=== PATIENT | male | born 1940 | race Caucasian/White ===

== ENCOUNTER 2024-01-11 20:36 | Inpatient (IN) | payer OTHER ==
[2024-01-11 21:21] LABS: #Basophils 0.04 10x3/uL (0.0-0.2); #Eosinphils 0.25 10x3/uL (0.0-0.5); #Monocytes 1.08 10x3/uL (0.0-1.1); #Neutrophils 7.47 10x3/uL (1.5-8.4); %Basophils 0.4 % (0.0-2.0); %Eosinophils 2.5 % (0.0-6.0); %Lymphocytes 9.9 % (18.0-47.0); %Monocytes 10.9 % (0.0-10.0); %Neutrophils 75.5 % (40.0-75.0); Hematocrit 34.3 % (38.8-50.0); Hemoglobin 11.3 g/dL (13.5-17.5); Mean Corpuscular HGB CONC 32.9 g/dL (32.0-36.0); Mean Corpuscular Hemoglobin 27.7 pg (27.0-33.0); Mean Corpuscular Volume 84.1 fL (81.2-95.1); Mean Platelet Volume 11.9 fL (7.4-10.4); Platelet Count 290 10x3/uL (150-450); RBC Distribution Width 15.8 % (11.5-14.5); Red Blood Cell (RBC) Count 4.08 10x6/uL (4.32-5.72); White Blood Cell (WBC) Count 9.9 10x3/uL (3.5-10.5)
[2024-01-11 21:34] LABS: ALT (SGPT) 18 U/L (8-55); AST (SGOT) 21 U/L (5-34); Albumin 3.2 g/dL (3.4-4.8); Alkaline Phosphatase 71 U/L (40-110); Anion Gap 12 mmol/L (10-20); BUN (Urea Nitrogen) 39 mg/dL (8.4-25.7); Bilirubin, Total 0.4 mg/dL (0.2-1.2); Calc. Creatinine Clearance 0 mL/min (70-130); Carbon Dioxide 24 mmol/L (23-31); Chloride 103 mmol/L (98-107); Estimated GFR 44; Globulin 3.3 g/dL (2.4-3.5); Glucose 131 mg/dL (83-110); Potassium 4.4 mmol/L (3.5-5.1); Protein, Total 6.5 g/dL (5.8-8.1); Sodium 135 mmol/L (136-145)
[2024-01-11 21:40] LABS: Troponin I 0.045 ng/mL (< 0.028)
[2024-01-11 23:49] LABS: Troponin I 0.091 ng/mL (< 0.028)
[2024-01-12] MEDS ORDERED: Guaifenesin DM 100-10/5 ML UDCUP PO PRN (00:07)
[2024-01-12] MEDS ORDERED: traMADol HCl 50 MG TAB PO PRN (00:07)
[2024-01-12] MEDS ORDERED: Calcium Carbonate 500 MG ChewTAB PO PRN (00:07)
[2024-01-12] MEDS ORDERED: Ondansetron PF 4 MG/2 ML Vial IVP PRN (00:07)
[2024-01-12] MEDS ORDERED: Acetaminophen 325 MG TAB PO PRN (00:07)
[2024-01-12] MEDS ORDERED: Senokot S 8.6-50 MG TAB PO PRN (00:07)
[2024-01-12] MEDS ORDERED: Furosemide 40 MG (4 mL) VIAL ONE (00:08)
[2024-01-12 02:26] VITALS: BMI 24.3
[2024-01-12] MEDS: Nitroglycerin 2% Ointment 1 INCH/1 GM Packet TOP SCH (02:50)
[2024-01-12 04:15] LABS: Anion Gap 13 mmol/L (10-20); BUN (Urea Nitrogen) 35 mg/dL (8.4-25.7); Calc. Creatinine Clearance 49 mL/min (70-130); Calcium 9.8 mg/dL (7.8-10.44); Carbon Dioxide 25 mmol/L (23-31); Chloride 103 mmol/L (98-107); Estimated GFR 51; Glucose 106 mg/dL (83-110); Magnesium 1.8 mg/dL (1.6-2.6); Potassium 4.4 mmol/L (3.5-5.1); Sodium 137 mmol/L (136-145)
[2024-01-12 04:17] LABS: Troponin I 0.129 ng/mL (< 0.028)
[2024-01-12 06:46] LABS: Influenza A by NAA Not Detected (NotDetected); Influenza B by NAA Not Detected (NotDetected); RSV by NAA Not Detected (NotDetected); SARS-CoV-2 NAA Rapid Test DETECTED (NotDetected)
[2024-01-12] MEDS ORDERED: Furosemide 20 MG (2 mL) VIAL SLOW IVP SCH (08:00)
[2024-01-12] MEDS: Enoxaparin 40 MG (0.4 mL) SYRINGE SC SCH (08:30)
[2024-01-12] MEDS: Allopurinol 100 MG TAB PO SCH (08:30)
[2024-01-12] MEDS: Aspirin 81 mg Enteric Coated Tablet PO SCH (08:30)
[2024-01-12] MEDS: Furosemide 40 MG (4 mL) VIAL SLOW IVP SCH (08:31)
[2024-01-12] MEDS: Carvedilol 6.25 MG TAB PO SCH (08:31)
[2024-01-12] MEDS: Magnesium Oxide 400 MG TAB PO SCH (08:31)
[2024-01-12 11:02] LABS: Cardiac Risk 2.4 (Less than 4.5)
[2024-01-12] MEDS: Magnesium 2 GM/50 ML(in water) 2 GM in Premix 1 BAG IVPB SCH (11:29)
[2024-01-12] MEDS: Simvastatin 10 MG TAB PO SCH (22:21)
[2024-01-12] MEDS: Terazosin HCl 1 MG CAP PO SCH (22:21)
[2024-01-13 09:34] LABS: #Basophils 0.04 10x3/uL (0.0-0.2); #Eosinphils 0.27 10x3/uL (0.0-0.5); #Monocytes 1.35 10x3/uL (0.0-1.1); #Neutrophils 6.21 10x3/uL (1.5-8.4); %Basophils 0.4 % (0.0-2.0); %Lymphocytes 12.7 % (18.0-47.0); %Monocytes 14.9 % (0.0-10.0); %Neutrophils 68.3 % (40.0-75.0); Hematocrit 36.4 % (38.8-50.0); Hemoglobin 12.1 g/dL (13.5-17.5); Mean Corpuscular HGB CONC 33.2 g/dL (32.0-36.0); Mean Corpuscular Hemoglobin 27.3 pg (27.0-33.0); Mean Corpuscular Volume 82.2 fL (81.2-95.1); Mean Platelet Volume 11.8 fL (7.4-10.4); Platelet Count 335 10x3/uL (150-450); RBC Distribution Width 15.9 % (11.5-14.5); Red Blood Cell (RBC) Count 4.43 10x6/uL (4.32-5.72); White Blood Cell (WBC) Count 9.1 10x3/uL (3.5-10.5)
[2024-01-13 10:02] LABS: Anion Gap 11 mmol/L (10-20); BUN (Urea Nitrogen) 34 mg/dL (8.4-25.7); Calc. Creatinine Clearance 50 mL/min (70-130); Calcium 9.5 mg/dL (7.8-10.44); Carbon Dioxide 27 mmol/L (23-31); Chloride 101 mmol/L (98-107); Estimated GFR 52; Glucose 104 mg/dL (83-110); Potassium 4.3 mmol/L (3.5-5.1); Sodium 135 mmol/L (136-145)
[2024-01-13 13:58] LABS: Hemoglobin A1c 5.6 % (4.0-6.0)
[2024-01-14 03:40] LABS: #Basophils 0.04 10x3/uL (0.0-0.2); #Eosinphils 0.29 10x3/uL (0.0-0.5); #Monocytes 1.68 10x3/uL (0.0-1.1); #Neutrophils 6.67 10x3/uL (1.5-8.4); %Basophils 0.4 % (0.0-2.0); %Eosinophils 2.9 % (0.0-6.0); %Lymphocytes 13.7 % (18.0-47.0); %Monocytes 16.6 % (0.0-10.0); %Neutrophils 65.9 % (40.0-75.0); Hematocrit 37.1 % (38.8-50.0); Hemoglobin 12.1 g/dL (13.5-17.5); Mean Corpuscular HGB CONC 32.6 g/dL (32.0-36.0); Mean Corpuscular Hemoglobin 27.1 pg (27.0-33.0); Mean Platelet Volume 11.7 fL (7.4-10.4); Platelet Count 358 10x3/uL (150-450); RBC Distribution Width 15.7 % (11.5-14.5); Red Blood Cell (RBC) Count 4.47 10x6/uL (4.32-5.72); White Blood Cell (WBC) Count 10.1 10x3/uL (3.5-10.5)
[2024-01-14 03:51] LABS: Anion Gap 12 mmol/L (10-20); BUN (Urea Nitrogen) 39 mg/dL (8.4-25.7); Calc. Creatinine Clearance 48 mL/min (70-130); Calcium 9.5 mg/dL (7.8-10.44); Carbon Dioxide 27 mmol/L (23-31); Chloride 100 mmol/L (98-107); Estimated GFR 49; Glucose 93 mg/dL (83-110); Potassium 4.5 mmol/L (3.5-5.1); Sodium 134 mmol/L (136-145)
[2024-01-14] MEDS: Sodium Chloride 0.9% 1,000 ML IV SCH (09:20)
[2024-01-14] MEDS ORDERED: Heparin 10,000 UNITS/ 10 ML VIAL ONE (09:29)
[2024-01-14] MEDS ORDERED: Lidocaine 1% (PF) 30 ML VIAL ONE (09:29)
[2024-01-14] MEDS ORDERED: Nitroglycerin 50 MG/250 ML BOT 250 ML ONE (09:29)
[2024-01-14] MEDS ORDERED: Adenosine 6 mg (2 mL) VIAL ONE (09:29)
[2024-01-14] MEDS ORDERED: Midazolam HCl 2 mg/2 ml Vial ONE (10:50)
[2024-01-14] MEDS ORDERED: fentaNYL 50 mcg/mL 1 mL Vial ONE (10:50)
[2024-01-14] MEDS ORDERED: Iopamidol 300 61% 100 ML VIAL FS ONE (11:28)
[2024-01-14] MEDS ORDERED: Clopidogrel Bisulfate 300 MG TAB ONE (11:49)
[2024-01-15 03:54] LABS: #Basophils 0.04 10x3/uL (0.0-0.2); #Eosinphils 0.15 10x3/uL (0.0-0.5); #Monocytes 2.11 10x3/uL (0.0-1.1); #Neutrophils 9.92 10x3/uL (1.5-8.4); %Basophils 0.3 % (0.0-2.0); %Eosinophils 1.1 % (0.0-6.0); %Lymphocytes 9.6 % (18.0-47.0); %Monocytes 15.5 % (0.0-10.0); %Neutrophils 73.1 % (40.0-75.0); Hematocrit 37.6 % (38.8-50.0); Hemoglobin 12.2 g/dL (13.5-17.5); Mean Corpuscular HGB CONC 32.4 g/dL (32.0-36.0); Mean Corpuscular Hemoglobin 27.1 pg (27.0-33.0); Mean Corpuscular Volume 83.6 fL (81.2-95.1); Mean Platelet Volume 11.8 fL (7.4-10.4); Platelet Count 428 10x3/uL (150-450); RBC Distribution Width 15.7 % (11.5-14.5); White Blood Cell (WBC) Count 13.6 10x3/uL (3.5-10.5)
[2024-01-15 03:55] LABS: ALT (SGPT) 22 U/L (8-55); AST (SGOT) 24 U/L (5-34); Alkaline Phosphatase 56 U/L (40-110); Anion Gap 12 mmol/L (10-20); BUN (Urea Nitrogen) 40 mg/dL (8.4-25.7); Bilirubin, Total 0.8 mg/dL (0.2-1.2); Calc. Creatinine Clearance 51 mL/min (70-130); Calcium 9.5 mg/dL (7.8-10.44); Carbon Dioxide 25 mmol/L (23-31); Chloride 100 mmol/L (98-107); Estimated GFR 52; Globulin 3.9 g/dL (2.4-3.5); Glucose 108 mg/dL (83-110); Potassium 4.4 mmol/L (3.5-5.1); Protein, Total 6.9 g/dL (5.8-8.1); Sodium 133 mmol/L (136-145)
[2024-01-15] MEDS: Clopidogrel Bisulfate 75 MG TAB PO SCH (08:07)
[2024-01-15 12:36] VITALS: BP 122/60; TEMP 97.9
[2024-01-15] MEDS: Sodium Chloride 0.9% 1,000 ML IV SCH (15:11)
== END 2024-01-15 16:08 | disposition home or self-care (01) | DRG 321 ==
LOC: CSHERS 20:36 → CSHTELE 01-12 → EEVIPCON 01-12 → CSHTELE 01-12 01:49 → OBSVTOIN 01-14 10:53
PROVIDERS: ADMIT Student in an Organized Health Care Education/Training Program; ATTEND Internal Medicine
PROC: 027135Z Dilation of Coronary Artery, Two Arteries with Two Drug-eluting Intraluminal Devices, Percutaneous Approach (ICD-10-PCS; principal; 2024-01-14)
PROC: 4A023N7 Measurement of Cardiac Sampling and Pressure, Left Heart, Percutaneous Approach (ICD-10-PCS; 2024-01-14)
PROC: B2111ZZ Fluoroscopy of Multiple Coronary Arteries using Low Osmolar Contrast (ICD-10-PCS; 2024-01-14)
PROC: B2151ZZ Fluoroscopy of Left Heart using Low Osmolar Contrast (ICD-10-PCS; 2024-01-14)
DX: I25.10 Atherosclerotic heart disease of native coronary artery without angina pectoris (principal); I50.43 Acute on chronic combined systolic (congestive) and diastolic (congestive) heart failure; I24.9 Acute ischemic heart disease, unspecified; I13.0 Hypertensive heart and chronic kidney disease with heart failure and stage 1 through stage 4 chronic kidney disease, or unspecified chronic kidney disease; N17.9 Acute kidney failure, unspecified; I25.5 Ischemic cardiomyopathy; R79.89 Other specified abnormal findings of blood chemistry; E78.5 Hyperlipidemia, unspecified; G47.33 Obstructive sleep apnea (adult) (pediatric); N18.9 Chronic kidney disease, unspecified; Z90.49 Acquired absence of other specified parts of digestive tract; Z98.890 Other specified postprocedural states
CPT/HCPCS: 0241U; 36415; 36416; 71045; 80048; 80053; 80061; 83036; 83735; 83880; 84443; 84484; 85025; 92928; 92978; 92979; 93005; 93010; 93306; 93458; 94760; 94762; 96374; 99152; 99153; C1725; C1753; C1760; C1769; C1874; C1887; C9600; J0153; J1644; J1650; J1940; J2001; J2250; J3010; J3475; J7030; Q9967